=== PATIENT | male | born 1995 | race Caucasian/White ===

== ENCOUNTER 2017-01-25 16:40 | Emergency (ER) | payer SELFPAY ==
[~2017-01-25] VITALS: Ht 177.8 cm; Wt 59.0 kg
[2017-01-25 16:40] VITALS: BP_SYST 112
--- NOTE | 2017-01-25 16:40 | NUR ---
BIB [address], Placed in room 02. Placed on court monitor, blood pressure machine and pulse oximeter. To gown for exam. Side rails up.
--- NOTE | 2017-01-25 16:55 | NUR ---
Pt was brought in by BLS, found wandering the streets, was released from custodial yesterday and is homeless. Pt complains of a headache for the past 3 days. No other injuries/complaints per pt or noted.
--- NOTE | 2017-01-25 17:12 | NUR ---
Pt provided with lunch tray, sitting up eating independently
--- NOTE | 2017-01-25 17:20 | NUR ---
ER at bedside examining patient.
[2017-01-25] MEDS ORDERED: QUEtiapine FUMARATE 25 MG TABLET PO ONE (17:30)
[2017-01-25] MEDS ORDERED: NACL 0.9% 1,000 ML IV ONE (17:30)
--- NOTE | 2017-01-25 17:41 | NUR ---
Pt pulled out iv, catheter found on ground in tact. site cleansed, dressing placed. No active bleeding. Dr. Hurley at bedside. Verbal order to d/c IVF. OK to give seroquel PO. Pt denies pain.
--- NOTE | 2017-01-25 17:49 | NUR ---
Medicated per MD orders.
--- NOTE | 2017-01-25 18:10 | NUR ---
No adverse reaction to medication given.
[2017-01-25 18:12] VITALS: BP_SYST 118
--- NOTE | 2017-01-25 18:12 | NUR ---
Patient given written and verbal discharge instructions and verbalizes understanding. ER MD discussed with patient the results and treatment provided. Patient in stable condition. ID arm band removed. No Rx given. Patient educated on pain management and to follow up with PMD. Pain Scale 0/10. Opportunity for questions provided and answered. Provided pt with clean long sleeve tshirt.
== END 2017-01-25 18:12 | disposition home or self-care (01) ==
LOC: SED 16:40
DX: F20.9 Schizophrenia, unspecified (principal)
CPT/HCPCS: 99282; 99283